=== PATIENT | female | born 1960 | race Caucasian/White ===

== ENCOUNTER 2021-02-15 14:19 | Emergency (ER) | payer BC ==
[~2021-02-15] VITALS: Ht 157.5 cm; Wt 67.1 kg
[~2021-02-15 14:19] MED LIST: ACETAMINOPHEN500 MG PO; ARMOUR THYROID15 MG PO; IBUPROFEN600 MG PO; OXYCODON-ACETA1 EAC2 PO
--- OUTSIDE RECORDS SUMMARY | 2021-02-15 14:28 | XMS ---
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 Anurag VISIT COUNT (12 MO.) [address] [place] [address] TOTAL 2 NOTE: Visits indicate total known visits. ED/UCC VISIT TRACKING (12 MO.) 02/15/2021 14:21 [facility] [place] TYPE: Emergency COMPLAINT: - FLU SYMPTOMS 02/14/2021 10:48 [facility] [place] TYPE: Emergency DIAGNOSES: - COVID+ FEVER WEAK - Contact with and (suspected) exposure to covid-19 INPATIENT VISIT TRACKING (12 MO.) No inpatient visits to display in this time frame [email or web address]
== END 2021-02-15 18:40 | disposition home or self-care (01) ==
LOC: ED 14:19
DX: U07.1 COVID-19 (principal); J45.909 Unspecified asthma, uncomplicated; E03.9 Hypothyroidism, unspecified; Z88.5 Allergy status to narcotic agent; Z85.3 Personal history of malignant neoplasm of breast; Z79.899 Other long term (current) drug therapy
CPT/HCPCS: 99284-25; M0243; Q0244